=== PATIENT | female | born 1935 | race Caucasian/White ===

== ENCOUNTER 2022-02-09 21:18 | Inpatient (IN) | payer MEDICARE, BC ==
[~2022-02-09] VITALS: Ht 160 cm; Wt 49.1 kg
[~2022-02-09 21:18] MED LIST: MONT4GRA PO
[2022-02-09 21:45] LABS: HEMATOCRIT 36.7 % (31.2-41.9); MEAN CORPUSCULAR HEMOGLOBIN 29.8 uug (24.7-32.8); MEAN CORPUSCULAR VOLUME 90.1 fL (75.5-95.3); PLATELET COUNT (AUTO) 250 K/uL (179-408)
[2022-02-09 21:52] LABS: CARBON DIOXIDE 29 mmol/L (21-32); CHLORIDE 103 mmol/L (98-107); GLUCOSE 120 mg/dL (74-106); UREA NITROGEN, BLOOD 18 mg/dL (7-18)
[2022-02-09 22:01] LABS: ALANINE AMINOTRANSFERASE 11 U/L (14-59); ALKALINE PHOSPHATASE 87 U/L (50-136); ASPARTATE AMINOTRANSFERASE 12 U/L (15-37); BILIRUBIN,DIRECT 0.1 mg/dL (0.0-0.2); BILIRUBIN,TOTAL 0.3 mg/dL (0.2-1.0); TOTAL PROTEIN, SERUM 6.3 g/dL (6.4-8.2)
--- NOTE | 2022-02-09 23:10 | NUR ---
PT back from CT.
[2022-02-09] MEDS ORDERED: DOCU-141 PO (23:52)
[2022-02-09] MEDS ORDERED: MIRT-93 PO (23:52)
[2022-02-09] MEDS ORDERED: ERGO400C PO (23:52)
[2022-02-09] MEDS ORDERED: MULT-594 PO (23:52)
[2022-02-09] MEDS ORDERED: QUET25TA PO ×2 (23:52)
[2022-02-09] MEDS ORDERED: OMEG-153 PO (23:52)
[2022-02-09] MEDS ORDERED: ASPI81TA31 PO (23:52)
[2022-02-09] MEDS ORDERED: SERT100T PO (23:52)
[2022-02-09] MEDS ORDERED: FORM20VI4 INH (23:54)
[2022-02-09] MEDS ORDERED: BUDE0.253 IH (23:54)
--- NOTE | 2022-02-10 00:02 | NUR ---
Called [facility] to page Therese RITTER.
--- NOTE | 2022-02-10 00:06 | NUR ---
Dr. Bales on phone with [facility].
[2022-02-10] MEDS ORDERED: ONDANSETRON 4 MG/2 ML VIAL IV PRN (00:15)
[2022-02-10] MEDS ORDERED: MORPHINE SULFATE 2 MG/1 ML DISP.SYRIN IV PRN (00:15)
[2022-02-10] MEDS ORDERED: ACETAMINOPHEN 325 MG TABLET PO PRN (00:15)
[2022-02-10] MEDS ORDERED: hydrALAZINE HCL 20 MG/1 ML VIAL IV PRN (00:15)
--- NOTE | 2022-02-10 01:00 | NUR ---
Report given to Desiree BURKETT TELE.
--- NOTE | 2022-02-10 02:30 | NUR ---
Admitted via [facility]. Oriented to surroundings.alert to place and self. Confused and forgetful at times. Inc. urine with diaper & linen change. On telemetry. SR.
--- NOTE | 2022-02-10 02:30 | NUR ---
Pt transfered to TELE unit, RM 315.
[2022-02-10 04:23] VITALS: BP 156/80
[2022-02-10] MEDS ORDERED: SERTRALINE HCL 100 MG TABLET PO SCH (09:00)
--- NOTE | 2022-02-10 09:00 | NUR ---
awake alert but confused, on room air, no distress noted, tele SR, denies of pain, safety measures maintained, call light and bed alarm on, PT here to see pt , but pt uncooperative at this time, will come back later
[2022-02-10 09:25] VITALS: BP_SYST 125; BP_SYST 146; BP_SYST 175; BP_DIAS 74; BP_DIAS 79; BP_DIAS 83
[2022-02-10] MEDS: ASPIRIN 81 MG TAB.CHEW PO SCH (09:27)
[2022-02-10] MEDS: DOCUSATE SODIUM 100 MG CAPSULE PO SCH ×2 (09:27→17:13)
[2022-02-10] MEDS: SERTRALINE HCL 50 MG TABLET PO SCH (09:27)
[2022-02-10] MEDS: HEPARIN SODIUM,PORCINE 5,000 UNITS/ML VIAL SQ SCH ×2 (09:29→20:00)
[2022-02-10] MEDS: MIRALAX 17 GM POWD.PACK PO SCH (09:29)
[2022-02-10] MEDS: QUETIAPINE FUMARATE 25 MG TABLET PO SCH (09:29)
[2022-02-10] MEDS ORDERED: CLONIDINE HCL 0.1 MG TABLET PO PRN (10:00)
--- NOTE | 2022-02-10 10:00 | NUR ---
caregiver at bedside, pt calm and cooperative at this time, sitting at bedside chair
--- NOTE | 2022-02-10 10:17 | NUR ---
SW spoke to patient's caregiver, Farrukh Craigparvin ([phone]) over the phone. Farrukh Mike ([phone]) stated that she was the patient's conservator and sent this SW the conservatorship paperwork. SW placed the conservatorship paperwork in the patient's chart and updated the patient's Doctor and Nurse.
[2022-02-10] MEDS: IV NS 1000 ML 1,000 ML IV PRN (11:35)
[2022-02-10 12:09] VITALS: BP 130/72
[2022-02-10 16:00] VITALS: BP 157/78
[2022-02-10] MEDS ORDERED: QUETIAPINE FUMARATE 25 MG TABLET PO SCH (18:00)
--- NOTE | 2022-02-10 18:07 | NUR ---
caregiver at bedside, pt has periods of being uncooperative, takes off tele and replaced, still confused, appetite fair, no distress noted, all needs attended and met, safety measures in place
--- NOTE | 2022-02-10 19:23 | NUR ---
Received patient sitting in the chair eating her dinner. Private caregiver on site. Patient appears calm and pleasant at this time. In no apparent distress. Denies any pain or SOB. NSR on tele with HR of 79/min. IV site on right FA intact and patent. IVF infusing. Needs assessed and attended to. Safety measure initiated and call light within reached. Continue to monitor.
[2022-02-10 20:48] VITALS: BP 171/82
[2022-02-10] MEDS ORDERED: LORAZEPAM 1 MG TABLET PO PRN (21:45)
[2022-02-10 22:05] VITALS: BP 160/79
[2022-02-10] MEDS ORDERED: LORAZEPAM 2 MG/1 ML VIAL IV PRN (23:30)
--- NOTE | 2022-02-10 23:30 | NUR ---
Patient was getting anxious and agitated. Trying to get OOB and pulled her IV. Offered Ativan PO 1mg tablet but pt refused and throw it of the floor. Informed Dr. Lipscomb and order to change Ativan tablet to IV. Order noted and will carry out. Place new IV on right FA #[id number].
[2022-02-11 00:15] VITALS: BP 154/85
[2022-02-11] MEDS: IV NS 1000 ML 1,000 ML IV PRN (03:05)
--- NOTE | 2022-02-11 05:22 | NUR ---
No further anxiety noted after patient was given Ativan 1mg IV. IV site on right FA remains intact and patent. IVF infusing. NSR on tele with HR of 77/min. Needs assessed and attended to. Safety measure maintained and call light within reached.
[2022-02-11 05:32] VITALS: BP 151/74
[2022-02-11 06:13] LABS: HEMATOCRIT 39.1 % (31.2-41.9); MEAN CORPUSCULAR HEMOGLOBIN 29.2 uug (24.7-32.8); MEAN CORPUSCULAR VOLUME 88.6 fL (75.5-95.3); PLATELET COUNT (AUTO) 232 K/uL (179-408)
[2022-02-11 06:46] LABS: BILIRUBIN,TOTAL 0.3 mg/dL (0.2-1.0); CREATININE 0.7 mg/dL (0.6-1.3); POTASSIUM 3.9 mmol/L (3.5-5.1); TOTAL PROTEIN, SERUM 6.7 g/dL (6.4-8.2)
--- NOTE | 2022-02-11 07:30 | NUR ---
RECEIVED PATIENT ASLEEP IN HER BED BUT AROUSES EASILY ALERT TO SELF ONLY HAS HER PRIVETS RIP SAWYER AT HER BEDSIDE ON ROOM AIR WITH NO S/S OF SOB AT THIS TIME IVF IS IN PROGRESS ORDERED WITH NO S/S OF INFILTERATION ON SITE CALL LIGHT AND PERSONAL BELONGINGS ARE WITHIN EASY REACH BUT ALL NEEDS ARE ANTICIPATED AND SATISFIED.WILL CONTINUE TO OBSERVE.
--- NOTE | 2022-02-11 08:18 | NUR ---
PATIENT SEEN AND EXAMINED BY DR URBANO WITH ORDER FOR ORTHOSTATIC BLOOD PRESSURE AND NOTED
[2022-02-11] MEDS: SERTRALINE HCL 50 MG TABLET PO SCH (08:34)
[2022-02-11] MEDS: QUETIAPINE FUMARATE 25 MG TABLET PO SCH (08:35)
[2022-02-11] MEDS: MIRALAX 17 GM POWD.PACK PO SCH (08:35)
[2022-02-11] MEDS: ASPIRIN 81 MG TAB.CHEW PO SCH (08:35)
[2022-02-11] MEDS: DOCUSATE SODIUM 100 MG CAPSULE PO SCH (08:35)
[2022-02-11] MEDS: HEPARIN SODIUM,PORCINE 5,000 UNITS/ML VIAL SQ SCH (08:36)
[2022-02-11 12:15] VITALS: BP 135/67
--- NOTE | 2022-02-11 12:24 | NUR ---
PATIENT SEEN BY MOLLY AGRAWAL WITH ORDER TO DISCHARGE HOME TODAY AND THE IRRIGATION TEACHER AWARE STATED WILL ARRANGE AMBULANCE TO TAKE PATIENT HOME.
--- NOTE | 2022-02-11 14:00 | NUR ---
PER THE AUGER SUPERVISOR PATIENT WILL BE PICKED UP BY AMBULANCE ABOUT 1730 TODAY
--- NOTE | 2022-02-11 15:30 | NUR ---
CALL RECEIVED FROM JUAN MURRAY STATED THAT SHE WANTS TO TALK WITH THE PROVIDER STATED SHE CALLED YESTERDAY AND DID NOT RECEIVE ANY RETURN CALL SO I OFFERED TO GIVE HER MOLLY RASHID PHONE NUMBER BUT SHE DECLINED VERY UPSET THAT PATIENT IS RECEIVING SERROQUEL AND DID RECEIVE ATIVAN PER REPORT PATIENT WAS VERY AGITATED PULLED OUT HER IV LINE AND TRIES TO GET OUT OF BED AT [facility] FOR FALL RELATED TO CONFUSSION AND POOR SAFETY AWARENESS BUT TERRI MORE ANGRY ABOUT THE ATIVAN STATED THAT NO BODY CALLED HER BEFORE THEY GAVE THESE MEDICATIONS TO THE PATIENT AND SHE HUNG UP THE PHONE ON THIS WRITTER.
--- NOTE | 2022-02-11 16:05 | NUR ---
gwen HUMPHREYS attempted to call reid MARTINEZ to discuss discharge w/o any answer. Message left to Farrukh [phone] and gave Gwen HUMPHREYS [phone] for her to call.
[2022-02-11 16:11] VITALS: BP 141/69
--- NOTE | 2022-02-11 17:25 | NUR ---
PATIENT DISCHARGED PICKED UP BY [facility] IN SATISFACTORY CONDITION WITH DISCHARGE INSTRUCTIONS AND PATIENTS BARBER STYLIST INSTRUCTED TO CALL HER PRIMARY DOCTOR FOR A FOLLOW UP APPOINTMENT WITHIN THE NEXT ONE TO TWO WEEKS AND SHE EXPRESSED UNDERSTANDING.
== END 2022-02-11 17:25 | disposition home health service (06) | DRG 640 ==
LOC: EEVIPCON 21:18 → ER 21:18 → TELE3 02-10 01:58
PROVIDERS: ADMIT Internal Medicine; ATTEND Nurse Practitioner Acute Care
DX: E86.1 Hypovolemia (principal); E43 Unspecified severe protein-calorie malnutrition; G93.41 Metabolic encephalopathy; I95.1 Orthostatic hypotension; G30.9 Alzheimer's disease, unspecified; F02.80 Dementia in other diseases classified elsewhere, unspecified severity, without behavioral disturbance, psychotic disturbance, mood disturbance, and anxiety; E88.09 Other disorders of plasma-protein metabolism, not elsewhere classified; F41.9 Anxiety disorder, unspecified; G89.29 Other chronic pain; I25.10 Atherosclerotic heart disease of native coronary artery without angina pectoris; J45.909 Unspecified asthma, uncomplicated; M19.90 Unspecified osteoarthritis, unspecified site; Z95.1 Presence of aortocoronary bypass graft; W07.XXXA Fall from chair, initial encounter; Y93.9 Activity, unspecified; Y92.009 Unspecified place in unspecified non-institutional (private) residence as the place of occurrence of the external cause; Z86.73 Personal history of transient ischemic attack (TIA), and cerebral infarction without residual deficits; S61.412A Laceration without foreign body of left hand, initial encounter; Z20.822 Contact with and (suspected) exposure to COVID-19
CPT/HCPCS: 36415; 70450; 71045; 72125; 73030; 73130; 83605; 84100; 84484; 85025; 86850; 86900; 86901; 87040; 93005; 97161; A4663; G0378; J0360; J1644; J2060; J7040